=== PATIENT | male | born 1970 | race Caucasian/White ===

== ENCOUNTER 2017-06-30 12:36 | Emergency (ER) | payer OTHER, SELFPAY ==
[2017-06-30 12:37] VITALS: BP 158/109; PULSE 118; RESP 20; TEMP 36.6; O2SAT 98; BMI 36.6
--- NOTE | 2017-06-30 12:56 | HMH.EDGENADL ---
ED Disposition Clinical Impression: Dehydration Gastritis Qualifiers: Gastritis type: unspecified gastritis Chronicity: acute Gastritis bleeding: without bleeding Qualified Code(s): K29.00 - Acute gastritis without bleeding Disposition: Home, Self-Care Condition on Discharge: Fair Instructions: DI for Diarrhea and Traveler's Diarrhea -- Adult, DI for Diarrhea and Traveler's Diarrhea -- Child, DI for Nausea -- Child, Nausea and Vomiting-Adult Additional Instructions: Advised to stay on clear liquids for the next 24 to 48 hours. Check sugars more frequently. Followup with PCP to get scheduled for an EGD . Return to the ED as needed. Prescriptions: Ondansetron HCl [Zofran 4mg Tab] 4 mg PO Q6H 7 Days #30 tab Referrals: Vaishnavi Olmedo [Primary Care Provider] - Time of Disposition: 14:52 - Critical Care Critical Care Time: No Attestation: On , the high probability of a clinically significant, sudden or life threatening deterioration of the following system(s) required my full and direct attention, intervention and personal management. The time I documented below is in addition to time spent performing reported procedures but includes the following listed in this critical care notation. Medical Decision Making - Medical Records Medical records reviewed: Yes: I reviewed the patient's medical records. Vital Signs: 06/30/17 12:37 Temperature 97.9 F Temperature Source Oral Pulse Rate [Right Brachial] 118 H Respiratory Rate 20 Blood Pressure [Right Arm] 158/109 Blood Pressure Mean [Right Arm] 125 Blood Pressure Source [Right Arm] Automatic Cuff Blood Pressure Position [Right Arm] Sitting 02 Sat by Pulse Oximetry 98 Oxygen Delivery Method Room Air - Lab Data Lab Results 06/30/17 13:15: WBC 11.0 H, RBC 6.25 H, Hgb 18.8 H*, Hct 54.2 H, MCV 86.7, MCH 29.9, MCHC 34.5, RDW 12.1, Plt Count 259, MPV 8.1, Neut % (Auto) 76.7, Lymph % (Auto) 17.6, [place] % (Auto) 4.6, Eos % (Auto) 0.5, Baso % (Auto) 0.5, Neut # (Auto) 8.5 H, Lymph # (Auto) 1.9, [place] # (Auto) 0.5, Eos # (Auto) 0.1, Baso # (Auto) 0.1 06/30/17 13:15: Sodium 137, Potassium 3.6, Chloride 98, Carbon Dioxide 26, Anion Gap 16.6 H, BUN 19 H, Creatinine 1.31 H, Estimated Creat Clear 119, Estimated GFR 58 L, Est GFR ( Amer) > 60, Glucose 163 H, Calcium 9.8, Total Bilirubin 1.1 H, AST 22, ALT 30, Alkaline Phosphatase 60, Total Protein 8.1, Albumin 4.7, Globulin 3.4 H, Albumin/Globulin Ratio 1.4, Amylase 89 06/30/17 13:15: Lipase 257 06/30/17 13:15: Influenza Type A Ag Negative, Influenza Type B Ag Negative Result diagrams: 06/30/17 13:15 06/30/17 13:15 Orders (Tests/Meds): ED MEDICATIONS Generic Name Dose Route Start Last Admin Trade Name Freq PRN Reason Stop Dose Admin Sodium Chloride 10 ml 06/30/17 12:55 Saline Flush 10ml Syringe IV 07/30/17 12:54 NEEDED PRN Maintain IV Site Discontinued Medications Generic Name Dose Route Start Last Admin Trade Name Freq PRN Reason Stop Dose Admin Diatrizoate Meglum/Diatrizoate Sod 30 ml 06/30/17 13:11 Gastrografin 66%-10% 30ml PO 06/30/17 13:12 ONCE ONE Sodium Chloride 1,000 mls @ 999 mls/hr 06/30/17 13:30 06/30/17 13:22 Sod Chloride 0.9% 1000ml Bag IV 06/30/17 14:30 999 mls/hr .Q1H1M ALBER Administration Iopamidol 75 ml 06/30/17 14:17 06/30/17 14:19 [id number]; 75ml Vial IV 06/30/17 14:18 75 ml ONCE ONE Administration Ondansetron HCl 4 mg 06/30/17 13:17 06/30/17 13:22 Zofran 4mg/2ml Vial IV 06/30/17 13:18 4 mg ONCE ONE Administration Sodium Chloride 10 ml 06/30/17 14:17 06/30/17 14:19 Rad-Saline Flush 10ml Syringe IV 06/30/17 14:18 10 ml ONCE ONE Administration - CT Data CT Scan: Abdomen, Pelvis (Nothing acute per radiologist) Time Received: 14:[address] Reviewed: Yes: I have reviewed the patient's CT results, I have viewed the radiologist's interpretation Preliminary Findings: Normal/NAD - Benjamin Inquiry
--- NOTE | 2017-06-30 13:02 | ED_ITS ---
ED Disposition Clinical Impression: Dehydration Gastritis Qualifiers: Gastritis type: unspecified gastritis Chronicity: acute Gastritis bleeding: without bleeding Qualified Code(s): K29.00 - Acute gastritis without bleeding Disposition: Home, Self-Care Condition on Discharge: Fair Instructions: DI for Diarrhea and Traveler's Diarrhea -- Adult, DI for Diarrhea and Traveler's Diarrhea -- Child, DI for Nausea -- Child, Nausea and Vomiting-Adult Additional Instructions: Advised to stay on clear liquids for the next 24 to 48 hours. Check sugars more frequently. Followup with PCP to get scheduled for an EGD . Return to the ED as needed. Prescriptions: Ondansetron HCl [Zofran 4mg Tab] 4 mg PO Q6H 7 Days #30 tab Referrals: Vaishnavi Olmedo [Primary Care Provider] - Time of Disposition: 14:52 - Critical Care Critical Care Time: No Attestation: On , the high probability of a clinically significant, sudden or life threatening deterioration of the following system(s) required my full and direct attention, intervention and personal management. The time I documented below is in addition to time spent performing reported procedures but includes the following listed in this critical care notation. Medical Decision Making - Medical Records Medical records reviewed: Yes: I reviewed the patient's medical records. Vital Signs: 06/30/17 12:37 Temperature 97.9 F Temperature Source Oral Pulse Rate [Right Brachial] 118 H Respiratory Rate 20 Blood Pressure [Right Arm] 158/109 Blood Pressure Mean [Right Arm] 125 Blood Pressure Source [Right Arm] Automatic Cuff Blood Pressure Position [Right Arm] Sitting 02 Sat by Pulse Oximetry 98 Oxygen Delivery Method Room Air - Lab Data Lab Results 06/30/17 13:15: WBC 11.0 H, RBC 6.25 H, Hgb 18.8 H*, Hct 54.2 H, MCV 86.7, MCH 29.9, MCHC 34.5, RDW 12.1, Plt Count 259, MPV 8.1, Neut % (Auto) 76.7, Lymph % ( Auto) 17.6, [place] % (Auto) 4.6, Eos % (Auto) 0.5, Baso % (Auto) 0.5, Neut # (Auto ) 8.5 H, Lymph # (Auto) 1.9, [place] # (Auto) 0.5, Eos # (Auto) 0.1, Baso # (Auto) 0.1 06/30/17 13:15: Sodium 137, Potassium 3.6, Chloride 98, Carbon Dioxide 26, Anion Gap 16.6 H, BUN 19 H, Creatinine 1.31 H, Estimated Creat Clear 119, Estimated GFR 58 L, Est GFR ( Amer) > 60, Glucose 163 H, Calcium 9.8, Total Bilirubin 1.1 H, AST 22, ALT 30, Alkaline Phosphatase 60, Total Protein 8.1, Albumin 4.7, Globulin 3.4 H, Albumin/Globulin Ratio 1.4, Amylase 89 06/30/17 13:15: Lipase 257 06/30/17 13:15: Influenza Type A Ag Negative, Influenza Type B Ag Negative Result diagrams: 06/30/17 13:15 06/30/17 13:15 Orders (Tests/Meds): ED MEDICATIONS Generic Name Dose Route Start Last Admin Trade Name Freq PRN Reason Stop Dose Admin Sodium Chloride 10 ml 06/30/17 12:55 Saline Flush 10ml Syringe IV 07/30/17 12:54 NEEDED PRN Maintain IV Site Discontinued Medications Generic Name Dose Route Start Last Admin Trade Name Freq PRN Reason Stop Dose Admin Diatrizoate Meglum/Diatrizoate Sod 30 ml 06/30/17 13:11 Gastrografin 66%-10% 30ml PO 06/30/17 13:12 ONCE ONE Sodium Chloride 1,000 mls @ 999 mls/hr 06/30/17 13:30 06/30/17 13:22 Sod Chloride 0.9% 1000ml Bag IV 06/30/17 14:30 999 mls/hr .Q1H1M ALBER Administration Iopamidol 75 ml 06/30/17 14:17 06/30/17 14:19
--- NOTE | 2017-06-30 13:08 | CT_ITS ---
CT abdomen pelvis w con CLINICAL INDICATION: Generalized abdominal pain ITS.REASON: abdominal pain ORDERING PHYSICIAN: Sejal Baron MD PATIENT AGE: 47 years COMPARISON: 10/18/2015 TECHNIQUE: Axial images obtained with sagittal and coronal reformats. PROCEDURE: Oral Contrast: None IV Contrast: 75 mL's Isovue-370. FINDINGS: No acute finding in the lung bases. Diffuse coronary artery calcification and/or stent placement Prior cholecystectomy. No ductal dilatation. The liver, spleen, adrenal glands, pancreas, and right kidney have an unremarkable appearance. There is a nonobstructing 3 mm stone in the lower pole the left kidney. No hydronephrosis or obstructing renal or ureteral calculi. No intestinal obstruction or free air. No evidence of appendicitis or diverticulitis. No pelvic mass or focal inflammatory change. No acute bony anomalies. There is moderate wedging involving L2 which is chronic similar to 10/18/2015 no evidence of abdominal aortic aneurysm. IMPRESSION: 1. No acute finding. 2. Nonobstructing left nephrolithiasis.
[2017-06-30 13:28] LABS: Lipase 257 u/L (73-393)
[2017-06-30 13:33] LABS: Alanine Aminotransferase 30 U/L (12-78); Albumin Level 4.7 gm/dL (3.4-5.0); Albumin/Globulin Ratio 1.4 (1.1-1.8); Alkaline Phosphatase 60 U/L (46-116); Amylase 89 U/L (25-125); Anion Gap 16.6 mEq/L (5-15); Aspartate Amino Transferase 22 U/L (15-37); Bilirubin,Total 1.1 mg/dL (0.2-1.0); Blood Urea Nitrogen 19 mg/dL (7-18); Calcium 9.8 mg/dL (8.5-10.1); Carbon Dioxide 26 mmol/L (21.0-32.0); Chloride 98 mmol/L (98-107); Creatinine Clearance Estimated 119 mL/min (0-300); Creatinine,Serum 1.31 mg/dL (0.70-1.30); Estimated Glomerular Filt Rate 58 ml/min (>60); GFR (African American) > 60 ML/MIN (>60); Globulin 3.4 gm/dl (1.3-3.2); Glucose 163 mg/dL (74-106); Potassium 3.6 mmoL/L (3.5-5.1); Sodium 137 mmol/L (136-145); Total Protein,Serum 8.1 gm/dL (6.4-8.2)
[2017-06-30 13:38] LABS: Basophils # 0.1 K/mm3 (0-0.2); Basophils % 0.5 % (0.1-2.0); Eosinophils # 0.1 K/mm3 (0.0-0.4); Eosinophils % 0.5 % (0.1-12.0); Hematocrit 54.2 % (42.0-52.0); Lymphocytes # 1.9 K/mm3 (0.7-4.5); Lymphocytes % 17.6 K/mm3 (10-50); Mean Corpuscular HGB Conc 34.5 g/dL (31.8-35.4); Mean Corpuscular Hemoglobin 29.9 pg (27.0-31.2); Mean Corpuscular Volume 86.7 fl (80-94); Mean Platelet Volume 8.1 fl (7.4-10.4); Monocytes # 0.5 K/mm3 (0.1-1.0); Monocytes % 4.6 % (1.7-9.3); Neutrophils # 8.5 K/mm3 (1.8-7.8); Neutrophils % 76.7 % (37.0-80.0); Platelet Count 259 K/mm3 (142-424); Red Blood Count 6.25 M/mm3 (4.60-6.20); Red Cell Distribution Width 12.1 % (11.5-17.5)
[2017-06-30 13:40] LABS: Hemoglobin 18.8 g/dL (14.1-18.0)
[2017-06-30 16:37] VITALS: BP 145/98; PULSE 104; RESP 18; TEMP 36.5; O2SAT 96
== END 2017-06-30 16:37 | disposition home or self-care (01) ==
PROVIDERS: Emergency Provider General Practice; PCP Family Medicine
DX: E86.0 Dehydration (principal); K29.00 Acute gastritis without bleeding; E11.9 Type 2 diabetes mellitus without complications; I10 Essential (primary) hypertension; Z79.82 Long term (current) use of aspirin; Z79.4 Long term (current) use of insulin; Z79.899 Other long term (current) drug therapy
CPT/HCPCS: 74177; 80053; 82150; 83690; 85025; 87275; 87276; 96365; 96375; 99284; J2405; Q9967

== ENCOUNTER → 2017-07-16 12:54 | Outpatient (CLI) | payer OTHER, SELFPAY ==
[2017-07-16 13:05] LABS: Basophils # 0.1 K/mm3 (0-0.2); Basophils % 0.9 % (0.1-2.0); Eosinophils # 0.1 K/mm3 (0.0-0.4); Eosinophils % 1.3 % (0.1-12.0); Hematocrit 51.9 % (42.0-52.0); Hemoglobin 17.1 g/dL (14.1-18.0); Lymphocytes # 1.6 K/mm3 (0.7-4.5); Lymphocytes % 26.8 K/mm3 (10-50); Mean Corpuscular HGB Conc 33.1 g/dL (31.8-35.4); Mean Corpuscular Hemoglobin 29.4 pg (27.0-31.2); Mean Platelet Volume 7.8 fl (7.4-10.4); Monocytes # 0.3 K/mm3 (0.1-1.0); Monocytes % 4.9 % (1.7-9.3); Neutrophils # 3.8 K/mm3 (1.8-7.8); Neutrophils % 66.1 % (37.0-80.0); Platelet Count 255 K/mm3 (142-424); Red Blood Count 5.83 M/mm3 (4.60-6.20); Red Cell Distribution Width 12.3 % (11.5-17.5); White Blood Count 5.8 K/mm3 (4.8-10.8)
== END ==
PROVIDERS: PCP Family Medicine; Visit Provider Family Medicine
DX: D75.1 Secondary polycythemia (principal)
CPT/HCPCS: 36415; 85025

== ENCOUNTER → 2018-08-15 10:40 | Outpatient (CLI) | payer OTHER, SELFPAY ==
[2018-08-15 11:26] LABS: Total Protein,Urine Random 27.9 mg/dL (0.0-11.9)
[2018-08-15 11:43] LABS: Creatinine,Urine Random 529 mg/dL (20-320)
[2018-08-15 12:07] LABS: Thyroid Stimulating Hormone 1.56 uIU/ml (0.358-3.740); Uric Acid 7.3 mg/dL (2.6-7.2)
[2018-08-15 15:03] LABS: Hemoglobin A1C 6.5 % (0.0-7.0)
[2018-08-16 10:56] LABS: Vitamin D 25 Hydroxy 22.7 ng/mL (30.0-100.0)
[2018-08-16 17:32] LABS: Parathyroid Hormone Intact 40 pg/mL (15-65)
== END ==
PROVIDERS: Visit Provider Internal Medicine Nephrology
DX: N18.3 Chronic kidney disease, stage 3 (moderate) (principal); E11.9 Type 2 diabetes mellitus without complications; I10 Essential (primary) hypertension
CPT/HCPCS: 36415; 82570; 82652; 83036; 83970; 84155; 84443; 84550

== ENCOUNTER → 2018-08-23 08:59 | Outpatient (CLI) | payer OTHER, SELFPAY ==
--- NOTE | 2018-08-23 | AS_ITS ---
Renal Arterial Duplex Indications: 405.91 Unspecified renovascular hypertension. CKD stage 3 IMPRESSIONS Normal bilateral renal artery evaluation. History: Risk factors: Hypertension. Renal disease. Complete renal arterial duplex. Duplex scan and Doppler flow study including spectral analysis, color and vines scale imaging. Height: Height: 182.9cm. Height: 72in. Weight: Weight: 122.5kg. Weight: 269.4lb. Body mass index: BMI: 36.6kg/m^2. Body surface area: BSA: 2.54m^2. Location: Vascular laboratory. Patient status: Outpatient. Tables: Arterial flow: + +--------+--------+ Location V sys V ed + +--------+--------+ Right renal - proximal 98.5cm/s 32.8cm/s + +--------+--------+ Right renal - mid 88.9cm/s 32.9cm/s + +--------+--------+ Right renal - distal 58.8cm/s 22.8cm/s + +--------+--------+ Left renal - proximal 94.3cm/s 18cm/s + +--------+--------+ Left renal - mid 126cm/s 34.7cm/s + +--------+--------+ Left renal - distal 104cm/s 26cm/s + +--------+--------+ Right renal-origin 106cm/s 33.5cm/s + +--------+--------+ Aorta 79.2cm/s -------- + +--------+--------+ Left renal-origin 98cm/s 19.9cm/s + +--------+--------+ Renal anatomy: + +------+------+ Left Right + +------+------+ Long axis 12.1cm 11.7cm + +------+------+ Short axis 7.1cm 8.2cm + +------+------+ Cortical thickness 2.3cm 1.7cm + +------+------+ Velocity ratios: + +-----+ V sys + +-----+ Right renal/aortic 1.3 + +-----+ Left renal/aortic 1.6 + +-----+ (Report amended ) Electronically signed by: Blu Low [id number]
== END ==
PROVIDERS: PCP Family Medicine; Visit Provider Internal Medicine Nephrology
DX: I12.9 Hypertensive chronic kidney disease with stage 1 through stage 4 chronic kidney disease, or unspecified chronic kidney disease (principal); N18.3 Chronic kidney disease, stage 3 (moderate)
CPT/HCPCS: 93976

== ENCOUNTER 2018-09-07 15:15 | Observation (INO) ==
[2018-09-07 15:50] LABS: Basophils # 0.1 K/mm3 (0-0.2); Basophils % 0.8 % (0.1-2.0); Eosinophils % 0.5 % (0.1-12.0); Hematocrit 43.6 % (42.0-52.0); Hemoglobin 14.9 g/dL (14.1-18.0); Lymphocytes # 2.5 K/mm3 (0.7-4.5); Lymphocytes % 30.1 % (10-50); Mean Corpuscular HGB Conc 34.3 g/dL (31.8-35.4); Mean Corpuscular Hemoglobin 29.7 pg (27.0-31.2); Mean Corpuscular Volume 86.6 fl (80-94); Monocytes # 0.6 K/mm3 (0.1-1.0); Monocytes % 7.1 % (1.7-9.3); Neutrophils # 5.1 K/mm3 (1.8-7.8); Neutrophils % 61.5 % (37.0-80.0); Platelet Count 281 K/mm3 (142-424); Red Blood Count 5.03 M/mm3 (4.60-6.20); Red Cell Distribution Width 12.1 % (11.5-17.5); White Blood Count 8.3 K/mm3 (4.8-10.8)
--- NOTE | 2018-09-07 15:55 | Emergency Department Note ---
ED Disposition Clinical Impression: CAD (coronary artery disease), Nephrolithiasis Disposition: Still a Patient Condition on Discharge: Fair Referrals: Vaishnavi Olmedo [Primary Care Provider] - - Critical Care Critical Care Time: No Attestation: On 09/07/18, the high probability of a clinically significant, sudden or life threatening deterioration of the following system(s) required my full and direct attention, intervention and personal management. The time I documented below is in addition to time spent performing reported procedures but includes the following listed in this critical care notation. Medical Decision Making - Benjamin Inquiry Pt receiving controlled substance: No Benjamin was queried for this patient: No Vital Signs: 09/07/18 15:28 09/07/18 15:58 Temperature 97.6 F Temperature Source Oral Pulse Rate [Left Radial] 68 73 Respiratory Rate 16 Blood Pressure [Right Arm] 98/63 L 92/66 L Blood Pressure Mean [Right Arm] 74 74 Blood Pressure Source [Right Arm] Automatic Cuff Blood Pressure Position [Right Arm] Sitting Sitting 02 Sat by Pulse Oximetry 98 98 Oxygen Delivery Method Room Air Room Air - Lab Data Lab Results 09/07/18 15:33: WBC 8.3, RBC 5.03, Hgb 14.9, Hct 43.6, MCV 86.6, MCH 29.7, MCHC 34.3, RDW 12.1, Plt Count 281, MPV 8.0, Neut % (Auto) 61.5, Lymph % (Auto) 30.1, [place] % (Auto) 7.1, Eos % (Auto) 0.5, Baso % (Auto) 0.8, Neut # (Auto) 5.1, Lymph # (Auto) 2.5, [place] # (Auto) 0.6, Eos # (Auto) 0.0, Baso # (Auto) 0.1 09/07/18 15:43: Stool Occult Blood Negative Result diagrams: 09/07/18 15:33 Orders (Tests/Meds): ED MEDICATIONS Generic Name Dose Route Start Last Admin Trade Name Freq PRN Reason Stop Dose Admin Sodium Chloride 1,000 mls @ 999 mls/hr 09/07/18 16:00 Sod Chlor 0.9% 1000ml Bag IV 09/07/18 17:00 .Q1H1M ALBER ORDERS Category Date Time Status CT abdomen pelvis wo con Stat Cat Scan 09/07/18 16:00 Ordered Chest XR 2 view (NOT portable) [XR chest 2V] Stat Exams 09/07/18 15:34 Taken B-Type Natriuretic Peptide Stat Lab 09/07/18 15:33 Received Basic Metabolic Panel Stat Lab 09/07/18 15:33 Received Lactic Acid Stat Lab 09/07/18 15:44 Ordered Liver Panel Stat Lab 09/07/18 15:44 Ordered Trop I [Troponin I] Stat Lab 09/07/18 15:33 Received UA [Urinalysis and Microscopic] Stat Lab 09/07/18 15:44 Ordered Blood Culture Stat Micro 09/07/18 15:44 Ordered - ECG Data Tracing #1 Normal sinus rhythm 69/min, first-degree AV block, left axis deviation, progression Q wave in inferior leads no acute findings ECG initial impression date: 09/07/18 ECG initial impression time: 15:38 General Adult HPI - General Chief complaint: Shortness of Breath/Dyspnea Stated complaint: SOB,Pain Back Time Seen by Provider: 09/07/18 15:30 Mode of Arrival: Ambulatory Limitations: No Limitations Description of Symptoms (Recalled from ER Triage Doc. by RN): to ed per pvt car with c/o sob, fatique, back pain, nausea x 3 days. pt denies fever, vomiting cpta none - History of Present Illness HPI narrative: 48 years old white male with multiple medical problems including coronary artery disease with multiple interventions on aspirin and Brilinta, nephrolithiasis and multiple kidney stones. For the past 3 days he has multitude of symptoms, including worsening of his lower back pain decreased, decreased urination, generalized weakness and dizziness that is worse upon standing in addition to his baseline shortness of breath. He denies having fever chills chest pain abdominal pain nausea or vomiting. He denies having hematemesis, coffee-ground emesis melanotic stool or bleeding per rectum. He denies having hematuria dysuria or frequency. The patient has multiple tattoos over his body including the glans penis. Onset (ago): day(s) (3 days ago.) Location: back Severity: moderate Quality: aching Consistency: constant Relieving factors: none Exacerbating factors: none Associated symptoms: malaise, shortness of breath, weakness - Related Data Home Medications Medication Instructions Recorded Confirmed Aspirin [Aspirin 81mg chewable 81 mg PO DAILY 06/30/17 09/07/18 tab] Carvedilol [Carvedilol 12.5mg Tab] 12.5 mg PO BID 06/30/17 09/07/18 Insulin Glargine,Hum.rec.anlog 20 unit SQ DAILY 06/30/17 09/07/18 [Justinosvetlanapaulino Arringtoncynthia U-100] atorvastatin 20 mg tablet 20 mg PO DAILY tab 08/14/17 09/07/18 fenofibrate 160 mg tablet 160 mg PO DAILY tab 08/14/17 09/07/18 omeprazole 40 mg capsule,delayed 40 mg PO DAILY cap 08/14/17 09/07/18 release ticagrelor 90 mg tablet 90 mg PO BID 08/14/17 09/07/18 Felodipine [Plendil 5mg tablet] 5 mg PO DAILY 04/29/18 09/07/18 Isosorbide Mononitrate [Imdur 30mg 30 mg PO QAM 04/29/18 09/07/18 ER tablet] Ranolazine [Ranexa] 500 mg PO BID 09/07/18 09/07/18 Previous Rx's Medication Instructions Recorded ondansetron HCl 4 mg tablet 4 mg PO QHS PRN #30 tab 08/16/17 Allergies Allergy/AdvReac Type Severity Reaction Status Date / Time duloxetine [From CYMBALTA] Allergy Intermediate I-HIVES Verified 06/30/17 12:52 gemfibrozil [From LOPID] Allergy Mild Verified 06/30/17 12:52 Penicillins [PENICILLINS] Allergy Mild Verified 06/30/17 12:52 phenytoin [From DILANTIN] Allergy Mild Verified 06/30/17 12:52 [facility] History - Hepatitis A Screen Drug use history?: No High risk sexual behaviors?: No History of sexually transmitted infection?: No Currently employed?: No Childcare worker?: No Do you have indoor plumbing?: Yes Do you have electricity?: Yes Attestation statement:: This patient has been screened for Hepatitis A risk factors. I have reviewed the patient's past medical history: Yes Medical History: Reports:: Diabetes Mellitus Type 2, Hypertension Denies:: MRSA Other Surgeries: Yes: Colonoscopy (08/01/17), EGD (08/01/17), Other Amputation: No Fractures: No - Social History Smoking Status: Current every day smoker Tobacco Type: cigarettes # Packs/Day (cigarettes): 0 Alcohol Intake: never Occupational Status: unemployed - Psychiatric History Expresses thoughts of harming self/others: None Suicide Plan Description: No Plan ROS Obtained: Yes All systems reviewed & no additional complaints Physical Exam - General General appearance: alert, in no apparent distress - Head Head exam: atraumatic, normocephalic, normal inspection - Eye Eye exam: Present: normal appearance, PERRL, EOMI. Absent: scleral icterus, nystagmus - ENT ENT exam: Present: normal exam, normal oropharynx, mucous membranes moist, TM's normal bilaterally, normal external ear exam - Neck Neck exam: Present: normal inspection, full ROM, trachea midline. Absent: meningismus, lymphadenopathy - Chest Chest inspection: Present: normal inspection, symmetric chest wall rise. Absent: tenderness - Respiratory Respiratory exam: Present: normal lung sounds bilaterally. Absent: respiratory distress - Cardiovascular Cardiovascular exam: Present: regular rate, normal rhythm, normal heart sounds. Absent: JVD - Abdominal Exam Abdominal exam: Present: soft, tenderness, normal bowel sounds, other (Equal bilateral femoral pulse, there is tenderness over the left flank. ). Absent: distention, guarding, rebound, rigidity, Sun's sign, tenderness at McBurney's Point - exam: Present: normal testicular lie, circumcised, other (Patient has tattoos on the glans penis. ). Absent: testicular tenderness, urethral discharge, scrotal swelling - Extremities Exam Extremities exam: Present: full ROM, normal capillary refill, other (multiple tattoos including the ankle. ). Absent: calf tenderness - Back Exam Back exam: Present: CVA tenderness (L). Absent: full ROM, tenderness - Neurological Exam Neurological exam: Present: alert, oriented X3, CN II-XII intact, motor sensory deficit, reflexes normal - Psychiatric Psychiatric exam: Present: normal affect, normal mood - Lymphatic Lymphatic Findings: no adenopathy
[2018-09-07 16:04] LABS: Anion Gap 13.3 mEq/L (5-15); Bilirubin,Direct 0.2 mg/dL (0.0-0.2); Bilirubin,Indirect 0.4 mg/dL (0.0-0.9); Bilirubin,Total 0.6 mg/dL (0.2-1.0); Blood Urea Nitrogen 26 mg/dL (7-18); Calcium 9.1 mg/dL (8.5-10.1); Carbon Dioxide 27 mmol/L (21.0-32.0); Chloride 99 mmol/L (98-107); Glucose 132 mg/dL (74-106); Potassium 4.3 mmoL/L (3.5-5.1); Sodium 135 mmol/L (136-145)
[2018-09-07 16:05] LABS: Total Protein,Serum 7.3 gm/dL (6.4-8.2)
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
[2018-09-08 04:55] LABS: Basophils # 0.1 K/mm3 (0-0.2); Basophils % 0.8 % (0.1-2.0); Eosinophils % 0.5 % (0.1-12.0); Hematocrit 38.7 % (42.0-52.0); Lymphocytes # 3.3 K/mm3 (0.7-4.5); Lymphocytes % 37.9 % (10-50); Mean Corpuscular HGB Conc 34.2 g/dL (31.8-35.4); Mean Corpuscular Hemoglobin 29.6 pg (27.0-31.2); Mean Corpuscular Volume 86.6 fl (80-94); Mean Platelet Volume 7.8 fl (7.4-10.4); Monocytes # 0.5 K/mm3 (0.1-1.0); Monocytes % 6.1 % (1.7-9.3); Neutrophils # 4.8 K/mm3 (1.8-7.8); Neutrophils % 54.7 % (37.0-80.0); Platelet Count 240 K/mm3 (142-424); Red Blood Count 4.47 M/mm3 (4.60-6.20); Red Cell Distribution Width 12.4 % (11.5-17.5); White Blood Count 8.8 K/mm3 (4.8-10.8)
[2018-09-08 04:56] LABS: Hemoglobin 13.2 g/dL (14.1-18.0)
[2018-09-08 05:05] LABS: Anion Gap 13.8 mEq/L (5-15); Blood Urea Nitrogen 21 mg/dL (7-18); Calcium 8.7 mg/dL (8.5-10.1); Carbon Dioxide 25 mmol/L (21.0-32.0); Chloride 103 mmol/L (98-107); Glucose 98 mg/dL (74-106); Potassium 3.8 mmoL/L (3.5-5.1); Sodium 138 mmol/L (136-145)
[2018-09-08 08:40] VITALS: BP 129/67
--- NOTE | 2018-09-08 09:08 | Pharmacy Consult Notes ---
[facility] Pharmacy VTE Monitoring - Patient Demographics Admission date: 09/07/18 Report Date: 09/08/18 Time: 09:08 Allergies/Adverse Reactions: Patient Allergies duloxetine [From CYMBALTA] Allergy (Intermediate, Verified 06/30/17 12:52) I-HIVES gemfibrozil [From LOPID] Allergy (Mild, Verified 06/30/17 12:52) Penicillins [PENICILLINS] Allergy (Mild, Verified 06/30/17 12:52) phenytoin [From DILANTIN] Allergy (Mild, Verified 06/30/17 12:52) Height: 1.83 m Weight: 122.952 kg Patient Problems: Current Active Problems Nephrolithiasis (Acute) Hypotension (Acute) Hypovolemia (Acute) History of ASCVD (Acute) Type 2 diabetes mellitus (Acute) Chronic renal insufficiency (Acute) CAD (coronary artery disease) (Chronic) - VTE Risk Labs: VTE Related Lab Results Hgb 13.2 g/dL (14.1-18.0) L D 09/08/18 04:20 Hct 38.7 % (42.0-52.0) L 09/08/18 04:20 Plt Count 240 K/mm3 (142-424) 09/08/18 04:20 BUN 21 mg/dL (7-18) H 09/08/18 04:20 Creatinine 2.15 mg/dL (0.70-1.30) H 09/08/18 04:20 Estimated Creat Clear 72 mL/min (50-200) 09/08/18 04:20 Was VTE Risk Assessment Performed: Yes VTE Score: 5 VTE Risk Level: Low Risk - Prophylaxis VTE Prophylaxis Ordered?: Yes Types of VTE Prophylaxis: TEDS Knee High Location of Applied Device: Bilateral Lower Extremeties - VTE Diagnosis Confirmed Treatment or plan recommended: Continue Current Treatment
--- NOTE | 2018-09-08 09:38 | Progress Note ---
Internal Medicine - PN: Subj Interval history: He rested well through the night and has no new complaints this morning. His dizziness has resolved. He has been tolerating activity around the room with no complaints of lightheadedness, chest pain, palpitations, or weakness. We have now been able to reconcile his home medication list and he was started on Lasix twice a day along with Spironolactone in May per Dr. Mendoza. This certainly would explain his presentation yesterday. Exam Vital signs and Labs for Last 24 Hours: Temp Pulse Resp BP Pulse Ox 97.9 F 72 16 129/67 97 09/08/18 08:00 09/08/18 08:00 09/08/18 08:00 09/08/18 08:00 09/08/18 08:12 Laboratory Results - last 24 hr 09/07/18 15:33: WBC 8.3, RBC 5.03, Hgb 14.9, Hct 43.6, MCV 86.6, MCH 29.7, MCHC 34.3, RDW 12.1, Plt Count 281, MPV 8.0, Neut % (Auto) 61.5, Lymph % (Auto) 30.1, [place] % (Auto) 7.1, Eos % (Auto) 0.5, Baso % (Auto) 0.8, Neut # (Auto) 5.1, Lymph # (Auto) 2.5, [place] # (Auto) 0.6, Eos # (Auto) 0.0, Baso # (Auto) 0.1 09/07/18 15:33: Sodium 135 L, Potassium 4.3, Chloride 99, Carbon Dioxide 27, Anion Gap 13.3, BUN 26 H, Creatinine 2.31 H, Estimated Creat Clear 66, Estimated GFR 30 L, Est GFR ( Amer) 37 L, Glucose 132 H, Calcium 9.1, Troponin I < 0.02 09/07/18 15:33: B-Natriuretic Peptide 9 09/07/18 15:33: Total Bilirubin 0.6, Direct Bilirubin 0.2, Indirect Bilirubin 0.4, AST 21, ALT 29, Alkaline Phosphatase 42 L, Total Protein 7.3, Albumin 4.0 09/07/18 15:43: Stool Occult Blood Negative 09/07/18 15:58: Lactate 0.7 09/07/18 20:05: Troponin I < 0.02 09/07/18 20:18: POC Glucose 101 09/08/18 04:20: WBC 8.8, RBC 4.47 L, Hgb 13.2 L D, Hct 38.7 L, MCV 86.6, MCH 29.6, MCHC 34.2, RDW 12.4, Plt Count 240, MPV 7.8, Neut % (Auto) 54.7, Lymph % (Auto) 37.9, [place] % (Auto) 6.1, Eos % (Auto) 0.5, Baso % (Auto) 0.8, Neut # (Auto) 4.8, Lymph # (Auto) 3.3, [place] # (Auto) 0.5, Eos # (Auto) 0.0, Baso # (Auto) 0.1 09/08/18 04:20: Sodium 138, Potassium 3.8, Chloride 103, Carbon Dioxide 25, Anion Gap 13.8, BUN 21 H, Creatinine 2.15 H, Estimated Creat Clear 72, Estimated GFR 33 L, Est GFR ( Amer) 40 L, Glucose 98 D, Calcium 8.7, Troponin I < 0.02 09/08/18 06:27: POC Glucose 86 I & O for Last 24 hours: Intake & Output 09/05/18 09/06/18 09/07/18 09/08/18 11:59 11:59 11:59 11:59 Intake Total 2027 / 2027 Output Total 750 / 750 Balance 1278 / 1278 Weight 271 lb 1 oz Narrative: He is alert and oriented and in no distress. Lungs are clear to auscultation. Heart is regular with no murmurs or ectopy. Extremities no edema. Assessment and Plan (1) Hypotension Status: Acute Category: Medical Code(s): I95.9 - Hypotension, unspecified (2) Hypovolemia Status: Acute Category: Medical Code(s): E86.1 - Hypovolemia (3) History of ASCVD Status: Acute Category: Medical Code(s): Z86.79 - Personal history of other diseases of the circulatory system (4) Type 2 diabetes mellitus Status: Acute Category: Medical Code(s): E11.9 - Type 2 diabetes mellitus w ithout complications (5) Chronic renal insufficiency Status: Acute Category: Medical Code(s): N18.9 - Chronic kidney disease, unspecified - Assessment and plan all Dx Assessment and Plan for all problems:: His blood pressure has normalized with hydration. He is stable for discharge today. He is directed to decrease his Lasix to once a day and discontinue his felodipine. We will arrange a follow-up appoint with Dr. Mendoza this week.
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
== END 2018-09-08 10:48 | disposition home or self-care (01) ==
LOC: 2ND 15:15 → ER 15:15 → 2ND 18:02
PROVIDERS: ADMIT Family Medicine; ATTEND Family Medicine
CPT/HCPCS: 36415; 71020; 71046; 74176; 80048; 80076; 82272; 82962; 83605; 83880; 84484; 85025; 87040; 93005; 96365; 99285; G0328; G0378

== ENCOUNTER → 2018-11-21 06:56 | Outpatient (CLI) | payer OTHER, SELFPAY ==
--- NOTE | 2018-11-21 06:59 | NM_ITS ---
CARDIOLITE SPECT MYOCARDIAL PERFUSION LEXISCAN, REST AND STRESS: [facility] REVIEW QGS EF AND WALL MOTION EVALUATION: QPS - PERFUSION EVALUATION HISTORY: cp..soa..fatigue DOSE: 9.91 mCi technetium 99m mibi intravenously at rest followed by 30.0 mCi technetium 99m mibi following the intravenous ministration of 0.4 mg of Lexiscan. Resting blood pressure is 121/73. Stress blood pressure 128/74. FINDINGS: Ejection fraction is calculated to be 43%. Stress images reveal decreased activity in the inferior apical wall as well as lateral wall. Stress images reveal mildly decreased activity in the apex and inferior wall with IMPRESSION: High risk abnormal stress test with previous nontransmural myocardial infarction involving the inferior apical wall with partial reversible ischemia. Reversible ischemia in the lateral wall. Regional wall motion abnormality. Used ejection fraction
--- NOTE | 2018-11-21 06:59 | CA_ITS ---
PROCEDURE: 2-D M-mode and color Doppler study INDICATIONS FOR THE TEST: Chest pain+ COPD Heart Murmur Tobacco Smoking+ Palpitations Fatigue Syncope Edema Hypertension+Diabetes Mellitus+ Rheumatic Fever SOB+MARTINEZ Obesity+Hyperlipidemia+ Family History HD Additional History CAD, ANGINA, CM, SC, STENTS PATIENT INFORMATION HEIGHT: 72 WEIGHT:266 GENDER: Male B/P:111/73 2-D/M-MODE INTERPRETATION: 2-D MEASUREMENTS OBSERVED VALUES IN CMS Right Ventricular Dimension (RVDd) 2.3 Interventricular Septum (Thickness)(IVsd) 1.1 Left Ventricular Internal Dimensions(LVIDd) 5.0 Left Ventricular Posterior Wall (Thickness)(LVPWd) 0.7 Aortic Root 3.5 Aortic Cusp Separation 2.1 Left Atrial Dimensions (LAD) 4.5 2D 1. Technically difficult study because of the patient's factor and poor acoustic windows 2. Left atrium is mildly enlarged, left ventricle is normal size, mild concentric left ventricular hypertrophy, visually estimated ejection fraction 45%, there appears to be moderate hypokinesis involving the distal septum and apical wall. 3. The right atrium and right ventricle are normal size and contractility. 4. The aortic valve is minimally thickened and fibrosed. 5. The pulmonic valve is poorly present. 6. No significant pericardial effusion noted. DOPPLER INTERROGATION: Doppler interrogation of the aortic, mitral and tricuspid valvular presence of mild mitral and tricuspid regurgitation, tricuspid regurgitation jet velocity is inadequate for calculation of the right ventricular systolic pressure, diastolic parameters are inconclusive. CONCLUSION: 1. Technically difficult study because of the patient's factor and poor acoustic windows 2. Mildly enlarged left atrium, normal left ventricular size, mild concentric left ventricular hypertrophy, visually estimated ejection fraction of 45% with multiple segmental wall motion abnormality described above. Diastolic parameters are inconclusive. 3. Mild mitral and tricuspid regurgitation 4. No significant pericardial effusion noted.
--- NOTE | 2018-11-21 10:52 | HMH.ITSHM ---
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 [] spironolactone asa atorvasatin buspirone carvedilol omeprazole
== END ==
PROVIDERS: PCP Family Medicine; Visit Provider Nurse Practitioner Family
DX: I20.9 Angina pectoris, unspecified (principal); I25.10 Atherosclerotic heart disease of native coronary artery without angina pectoris; I43 Cardiomyopathy in diseases classified elsewhere; I50.20 Unspecified systolic (congestive) heart failure; R06.02 Shortness of breath
CPT/HCPCS: 78452; 93017; 93306; A9502; J2785

== ENCOUNTER → 2018-12-20 12:34 | Outpatient (CLI) | payer OTHER, SELFPAY ==
--- NOTE | 2018-12-20 12:39 | XR_ITS ---
XR wrist LT min 3V CLINICAL INDICATION: ITS.REASON: lt wrist fx ORDERING PHYSICIAN: Carmen Lowe MD PATIENT AGE: 48 years Comparison: None FINDINGS: Bone density is stable. The small linear fracture involving the triquetrum or pisiform carpal bone as discussed on the prior report is not visualized. There is no acute fracture on this study. Soft tissues are unremarkable. Alignment is stable and normal. IMPRESSION: No evidence of acute fracture. The previously described fracture line is not identified on this study.
== END ==
PROVIDERS: PCP Family Medicine; Visit Provider Orthopaedic Surgery
DX: S62.113A Displaced fracture of triquetrum [cuneiform] bone, unspecified wrist, initial encounter for closed fracture (principal)
CPT/HCPCS: 73110

== ENCOUNTER → 2019-07-30 13:49 | Outpatient (CLI) | payer OTHER, SELFPAY ==
[2019-07-30 14:32] LABS: Basophils % 0.6 % (0.1-2.0); Eosinophils # 0.1 K/mm3 (0.0-0.4); Eosinophils % 1.7 % (0.1-12.0); Hematocrit 45.5 % (42.0-52.0); Hemoglobin 15.5 g/dL (14.1-18.0); Lymphocytes # 2.3 K/mm3 (0.7-4.5); Lymphocytes % 32.8 % (10-50); Mean Corpuscular Volume 88.4 fl (80-94); Mean Platelet Volume 7.9 fl (7.4-10.4); Monocytes # 0.4 K/mm3 (0.1-1.0); Monocytes % 5.6 % (1.7-9.3); Neutrophils # 4.2 K/mm3 (1.8-7.8); Neutrophils % 59.3 % (37.0-80.0); Platelet Count 238 K/mm3 (142-424); Red Blood Count 5.15 M/mm3 (4.60-6.20); White Blood Count 7.2 K/mm3 (4.8-10.8)
[2019-07-30 15:37] LABS: Hemoglobin A1C 7.2 % (0.0-7.0)
[2019-07-30 15:53] LABS: Alanine Aminotransferase 32 U/L (12-78); Albumin Level 3.7 gm/dL (3.4-5.0); Albumin/Globulin Ratio 1.4 (1.1-1.8); Alkaline Phosphatase 42 U/L (46-116); Anion Gap 9.6 mEq/L (5-15); Aspartate Amino Transferase 20 U/L (15-37); Bilirubin,Total 0.3 mg/dL (0.2-1.0); Blood Urea Nitrogen 12 mg/dL (7-18); Calcium 8.7 mg/dL (8.5-10.1); Carbon Dioxide 30 mmol/L (21.0-32.0); Chloride 105 mmol/L (98-107); Cholesterol 150 mg/dL (140-200); Creatinine,Serum 1.34 mg/dL (0.70-1.30); Estimated Glomerular Filt Rate 56 ml/min (>60); Free Thyroxine Index 2.2 ug/dL (5.93-13.13); GFR (African American) 68 ML/MIN (>60); Globulin 2.7 gm/dl (1.3-3.2); Glucose 155 mg/dL (74-106); HDL Cholesterol 30 mg/dL (27-67); LDL Cholesterol 89 mg/dL (0-130); Potassium 4.6 mmoL/L (3.5-5.1); Sodium 140 mmol/L (136-145); T4 (Thyroxine) 7.2 ug/dl (4.7-13.3); Thyroid Stimulating Hormone 1.05 uIU/ml (0.358-3.740); Total Protein,Serum 6.4 gm/dL (6.4-8.2); Triglycerides 156 mg/dL (30-200); Triiodothryronine (T3) Uptake 30 % (31-39); VLDL Cholesterol 31 mg/dL (0-40)
== END ==
PROVIDERS: Visit Provider Nurse Practitioner Psychiatric/Mental Health
DX: F33.1 Major depressive disorder, recurrent, moderate (principal)
CPT/HCPCS: 36415; 80053; 80061; 83036; 84436; 84443; 84479; 85025

== ENCOUNTER 2020-03-10 12:36 | Emergency (ER) | payer OTHER, SELFPAY ==
[2020-03-10 12:50] VITALS: BP 123/81; PULSE 97; RESP 20; TEMP 36.4; O2SAT 98; BMI 43.4
--- NOTE | 2020-03-10 13:15 | HMH.EDUTC ---
[facility] Disposition Clinical Impression: Viral syndrome Diarrhea Qualifiers: Diarrhea type: unspecified type Qualified Code(s): R19.7 - Diarrhea, unspecified Pharyngitis Qualifiers: Pharyngitis/tonsillitis etiology: unspecified etiology Qualified Code(s): J02.9 - Acute pharyngitis, unspecified Acid reflux Qualifiers: Esophagitis presence: esophagitis presence not specified Qualified Code(s): K21.9 - Gastro-esophageal reflux disease without esophagitis Disposition: Home, Self-Care Condition on Discharge: Good Instructions: Diarrhea, DI for Viral Syndrome Additional Instructions: Drink plenty of fluids. Take tylenol or ibuprofen for pain or fever. Take the medications as directed. Follow up with your regular doctor. GO TO THE ER FOR ANY WORSENING SYMPTOMS FOLLOW THE DIRECTIONS ON THE COVID-19 HAND OUT THAT WE GAVE YOU REGARDING SELF-ISOLATION UNTIL YOU KNOW YOUR COVID-19 RESULTS Return a stool sample if you diarrhea continues thru tomorrow. Prescriptions: Famotidine [Pepcid 20mg Tablet] 20 mg PO DAILY 30 Days #30 tab Transmission Status: Received by [facility] Azithromycin [Z-Seng 250mg Tab*] 250 mg PO UD DOSE PK #6 tab Transmission Status: Received by [facility] Referrals: Vaishnavi Olmedo [Primary Care Provider] - Time of Disposition: 13:43 Medical Decision Making - Medical Records Medical records reviewed: No: I reviewed the patient's medical records. - Benjamin Inquiry Pt receiving controlled substance: No Vital Signs: 03/10/20 12:50 03/10/20 13:20 Temperature 97.5 F L 97.5 F L Temperature Source Oral Oral Pulse Rate [Left Radial] 97 H 97 H Respiratory Rate 20 20 Blood Pressure [Right Arm] 123/81 123/81 Blood Pressure Mean [Right Arm] 95 95 Blood Pressure Source [Right Arm] Automatic Cuff Automatic Cuff Blood Pressure Position [Right Arm] Sitting Sitting 02 Sat by Pulse Oximetry 98 98 Oxygen Delivery Method Room Air Room Air - Lab Data Lab results reviewed: Yes: I reviewed the patient's lab results. Orders (Tests/Meds): ORDERS Category Date Time Status Covid-19 Nasal PCR Sendout [facility] 03/10/20 13:28 Received [facility] HPI - General Stated complaint: COVID SYM Time Seen by Provider: 03/10/20 13:15 Mode of Arrival: Ambulatory Source of Information: Patient Limitations: No Limitations Description of Symptoms (Recalled from Triage Doc. by RN): c/o cough, n/v/d for 9 days, just feeling weak. - History of Present Illness Provider Complaint: He c/o 9 days of feeling bad. He has had diarrhea, nausea, cough, sore throat and feeling very bad at times. He is not aware of any exposure to COVID, but he would like to be checked since his symptoms have went on so long. - Related Data Home Medications Medication Instructions Recorded Confirmed Insulin Glargine,Hum.rec.anlog 20 unit SQ DAILY 06/30/17 01/15/19 [Maribell Peacock U-100] fenofibrate 160 mg tablet 160 mg PO DAILY tab 08/14/17 01/15/19 omeprazole 40 mg capsule,delayed 40 mg PO DAILY cap 08/14/17 01/15/19 release ticagrelor 90 mg tablet 90 mg PO BID 08/14/17 01/15/19 Ranolazine [Ranexa] 500 mg PO BID 09/07/18 01/15/19 ARIPiprazole [Aripiprazole 10mg 10 mg PO DAILY 09/08/18 01/15/19 Tablet] Aspirin [Aspir 81] 81 mg PO DAILY 09/08/18 01/15/19 Buspirone HCl [Buspirone 15 mg 15 mg PO DAILY 09/08/18 01/15/19 Tablets] Meloxicam [Mobic 15 mg tab] 15 mg PO DAILY 09/08/18 01/15/19 Montelukast Sodium [Montelukast 10 mg PO HS 09/08/18 01/15/19 10mg Tab] Sitagliptin Phosphate [Januvia 100 mg PO DAILY 09/08/18 01/15/19 100mg tablet] Spironolactone [Aldactone 50mg 50 mg PO DAILY 09/08/18 01/15/19 Tab] Tamsulosin HCl [Flomax 0.4mg 0.4 mg PO HS 09/08/18 01/15/19 capsule] Vortioxetine Hydrobromide 20 mg PO DAILY 09/08/18 01/15/19 [Trintellix] carvediloL [Carvedilol 25mg Tab] 25 mg PO DAILY 09/08/18 01/15/19 atorvastatin 20 mg tablet 40 mg
[2020-03-10 13:20] VITALS: BP 123/81; PULSE 97; RESP 20; TEMP 36.4; O2SAT 98; BMI 43.3
[2020-03-10 14:38] VITALS: BP 123/81; PULSE 97; RESP 20; TEMP 36.7; O2SAT 98
[2020-03-10 14:46] LABS: UTC Strep Screen (Rapid) Negative (Negative)
[2020-03-12 10:17] LABS: Covid-19 Nasal PCR Sendout Lex NOT DETECTED
== END 2020-03-10 14:40 | disposition home or self-care (01) ==
LOC: ER 12:41 → UTC 12:51
PROVIDERS: Emergency Provider Nurse Practitioner Family; PCP Family Medicine
DX: B34.9 Viral infection, unspecified (principal); Z20.828 Contact with and (suspected) exposure to other viral communicable diseases; J02.9 Acute pharyngitis, unspecified; K21.9 Gastro-esophageal reflux disease without esophagitis; I25.10 Atherosclerotic heart disease of native coronary artery without angina pectoris; E78.5 Hyperlipidemia, unspecified; I10 Essential (primary) hypertension; I25.2 Old myocardial infarction; Z79.899 Other long term (current) drug therapy; Z88.0 Allergy status to penicillin; Z88.8 Allergy status to other drugs, medicaments and biological substances
CPT/HCPCS: 87880; 99202; U0004

== ENCOUNTER 2020-05-28 13:54 | Emergency (ER) | payer OTHER, SELFPAY ==
[2020-05-28 14:16] VITALS: BP 126/81; PULSE 91; RESP 18; TEMP 36.6; O2SAT 96; BMI 35.9
[2020-05-28 14:23] LABS: UTC Influenza A Antigen Negative (Negative)
[2020-05-28 14:24] LABS: UTC Influenza B Antigen Negative (Negative)
--- NOTE | 2020-05-28 14:27 | HMH.EDUTC ---
[facility] [place] [facility] Disposition Clinical Impression: Viral syndrome, Exposure to COVID-19 virus, Bronchitis Disposition: Home, Self-Care Condition on Discharge: Good Instructions: Preventing the Spread of Coronavirus Discharge Instructions Additional Instructions: Drink plenty of fluids. Take tylenol for pain or fever. Return if you begin to have difficulty breathing. Follow up with your regular doctor. GO TO THE ER FOR ANY WORSENING SYMPTOMS Prescriptions: Ondansetron [Zofran 4mg ODT] 4 mg PO Q8HP PRN #12 tab.rapdis PRN Reason: Nausea Transmission Status: Received by [facility] Benzonatate [Tessalon Perle 100mg Cap] 100 mg PO TIDP PRN #30 cap PRN Reason: Cough Transmission Status: Received by [facility] Azithromycin [Z-Seng 250mg Tab*] 250 mg PO UD DOSE PK #6 tab Transmission Status: Received by [facility] Referrals: Vaishnavi Olmedo [Primary Care Provider] - Time of Disposition: 14:30 Medical Decision Making - Medical Records Medical records reviewed: No: I reviewed the patient's medical records. - Benjamin Inquiry Pt receiving controlled substance: No Vital Signs: 05/28/20 14:16 05/28/20 14:56 Temperature 97.8 F 97.8 F Temperature Source Oral Oral Pulse Rate 91 H Pulse Rate [Radial] 91 H Respiratory Rate 18 18 Blood Pressure 126/81 Blood Pressure [Right Arm] 126/81 Blood Pressure Mean [Right Arm] 96 Blood Pressure Source Automatic Cuff Blood Pressure Source [Right Arm] Automatic Cuff Blood Pressure Position Sitting Blood Pressure Position [Right Arm] Sitting 02 Sat by Pulse Oximetry 96 Oxygen Delivery Method Room Air Room Air - Lab Data Lab results reviewed: Yes: I reviewed the patient's lab results. Lab Results 05/28/20 14:03: Influenza Type A Ag Negative, Influenza Type B Ag Negative [facility] [place] HPI - General Stated complaint: covid test Time Seen by Provider: 05/28/20 14:27 Mode of Arrival: Ambulatory Source of Information: Patient Limitations: No Limitations Description of Symptoms (Recalled from Triage Doc. by RN): cough, chest congestion, body aches, SOB x 3 days HEENT Symptoms (Recalled from RN notes): Yes Resp Symptoms (Recalled from RN notes): No Skin Symptoms (Recalled from RN notes): No MS Symptoms (Recalled from RN notes): No Functional Status (Recalled from RN notes): wnl - History of Present Illness Provider Complaint: He states that he has had cough, chest congestion, chest tightness, and body aches for the past 3 days. - Related Data Home Medications Medication Instructions Recorded Confirmed Insulin Glargine,Hum.rec.anlog 20 unit SQ DAILY 06/30/17 01/15/19 [Maribell Peacock U-100] fenofibrate 160 mg tablet 160 mg PO DAILY tab 08/14/17 01/15/19 omeprazole 40 mg capsule,delayed 40 mg PO DAILY cap 08/14/17 01/15/19 release ticagrelor 90 mg tablet 90 mg PO BID 08/14/17 01/15/19 Ranolazine [Ranexa] 500 mg PO BID 09/07/18 01/15/19 ARIPiprazole [Aripiprazole 10mg 10 mg PO DAILY 09/08/18 01/15/19 Tablet] Aspirin [Aspir 81] 81 mg PO DAILY 09/08/18 01/15/19 Buspirone HCl [Buspirone 15 mg 15 mg PO DAILY 09/08/18 01/15/19 Tablets] Meloxicam [Mobic 15 mg tab] 15 mg PO DAILY 09/08/18 01/15/19 Montelukast Sodium [Montelukast 10 mg PO HS 09/08/18 01/15/19 10mg Tab] Sitagliptin Phosphate [Januvia 100 mg PO DAILY 09/08/18 01/15/19 100mg tablet] Spironolactone [Aldactone 50mg 50 mg PO DAILY 09/08/18 01/15/19 Tab] Tamsulosin HCl [Flomax 0.4mg 0.4 mg PO HS 09/08/18 01/15/19 capsule] Vortioxetine Hydrobromide 20 mg PO DAILY 09/08/18 01/15/19 [Trintellix] carvediloL [Carvedilol 25mg Tab] 25 mg PO DAILY 09/08/18 01/15/19 atorvastatin 20 mg tablet 40 mg PO DAILY tab 11/08/18 01/15/19 ranitidine HCl 150 mg tablet 150 mg PO DAILY 11/08/18 01/15/19 trazodone 150 mg tablet 150 mg PO DAILY 11/08/18 01/15/19 Previous Rx's Medication Instructions Recorded ondansetron HCl
[2020-05-28 14:56] VITALS: BP 126/81; PULSE 91; RESP 18; TEMP 36.6; O2SAT 96
--- NOTE | 2020-05-28 19:58 | PC.NURSE ---
Patient notified of positive COVID results. Educated on proper quarantine.
== END 2020-05-28 14:56 | disposition home or self-care (01) ==
PROVIDERS: Emergency Provider Nurse Practitioner Family; PCP Family Medicine
DX: U07.1 COVID-19 (principal); I25.2 Old myocardial infarction; I25.10 Atherosclerotic heart disease of native coronary artery without angina pectoris; I10 Essential (primary) hypertension; E78.5 Hyperlipidemia, unspecified; E11.9 Type 2 diabetes mellitus without complications; Z79.899 Other long term (current) drug therapy
CPT/HCPCS: 87804; 99201; U0003

== ENCOUNTER → 2020-08-28 10:14 | Outpatient (CLI) | payer OTHER, SELFPAY ==
[2020-08-28 10:19] LABS: Microscopic, Urine URINE MICROSCOPIC (MICROSCOPIC)
[2020-08-28 10:44] LABS: Appearance,Urine CLEAR (Clear); Basophils # 0.1 K/mm3 (0-0.2); Basophils % 1.2 % (0.1-2.0); Bilirubin,Urine Negative (Negative); Blood, Urine Negative (Negative); Color,Urine YELLOW (Yellow); Eosinophils % 0.3 % (0.1-12.0); Glucose,Urine (UA) 3+ (Negative); Hematocrit 51.9 % (42.0-52.0); Ketones,Urine Negative (Negative); Leukocyte Esterase,Urine Negative (Negative); Lymphocytes # 2.3 K/mm3 (0.7-4.5); Lymphocytes % 30.8 % (10-50); Mean Corpuscular HGB Conc 32.8 g/dL (31.8-35.4); Mean Corpuscular Hemoglobin 28.6 pg (27.0-31.2); Mean Corpuscular Volume 87.2 fl (80-94); Mean Platelet Volume 7.9 fl (7.4-10.4); Monocytes # 0.4 K/mm3 (0.1-1.0); Monocytes % 5.5 % (1.7-9.3); Neutrophils # 4.7 K/mm3 (1.8-7.8); Neutrophils % 62.2 % (37.0-80.0); Nitrate,Urine Negative (Negative); Platelet Count 228 K/mm3 (142-424); Protein,Urine Negative (Negative); Red Blood Count 5.95 M/mm3 (4.60-6.20); Red Cell Distribution Width 13.4 % (11.5-17.5); Specific Gravity, Urine >= 1.030 (1.005-1.030); Urobilinogen,Urine 0.2 EU/dl (0.2); White Blood Count 7.6 K/mm3 (4.8-10.8)
[2020-08-28 10:45] LABS: Creatinine,Urine Random 163 mg/dL (Not Estab.)
[2020-08-28 10:59] LABS: Squamous Epithelial Cell,Urine Occasional #/hpf (0-5)
[2020-08-28 11:05] LABS: Chloride 102 mmol/L (98-107); Potassium 4.5 mmoL/L (3.5-5.1); Sodium 135 mmol/L (136-145)
[2020-08-28 11:06] LABS: Albumin Level 4.2 g/dl (3.5-5.0)
[2020-08-28 11:08] LABS: Anion Gap 10.5 mEq/L (5-15); Blood Urea Nitrogen 10 mg/dl (9-20); Carbon Dioxide 27 mmol/L (22.0-30.0); Estimated Glomerular Filt Rate 64 ml/min (>60); GFR (African American) 77 ML/MIN (>60)
[2020-08-28 11:09] LABS: Calcium 9.5 mg/dl (8.4-10.2); Glucose 315 mg/dl (74-100); Phosphorous 2.8 mg/dl (2.5-4.5)
== END ==
PROVIDERS: Visit Provider Internal Medicine Nephrology
DX: N18.30 Chronic kidney disease, stage 3 unspecified (principal)
CPT/HCPCS: 36415; 80069; 81001; 82570; 84155; 85025

== ENCOUNTER → 2021-02-17 16:12 | Outpatient (CLI) | payer OTHER, SELFPAY ==
--- NOTE | 2021-02-17 16:49 | XR_ITS ---
PROCEDURE: XR FOOT LT MIN 3V CLINICAL INDICATION: TOE PAIN/FOOT PAIN/TOE LESION/DIABETES COMPARISON: No exams were available for comparison FINDINGS: No fracture or dislocation. No lytic or blastic change. There is normal mineralization. The joint spaces are well-preserved. No significant degenerative/arthritic changes. No erosive changes evident. Other findings:None. IMPRESSION: No acute findings. Dictated by: Blu Low MD 02/18/2021 15:06 Blu Low MD in OV 02/18/2021 15:06
[2021-02-17 17:07] LABS: Basophils # 0.1 K/mm3 (0-0.2); Basophils % 1.3 % (0.1-2.0); Eosinophils # 0.1 K/mm3 (0.0-0.4); Eosinophils % 0.7 % (0.1-12.0); Hematocrit 55.6 % (42.0-52.0); Lymphocytes # 2.1 K/mm3 (0.7-4.5); Lymphocytes % 25.6 % (10-50); Mean Corpuscular HGB Conc 32.8 g/dL (31.8-35.4); Mean Corpuscular Hemoglobin 29.6 pg (27.0-31.2); Mean Corpuscular Volume 90.4 fl (80-94); Mean Platelet Volume 8.1 fl (7.4-10.4); Monocytes # 0.4 K/mm3 (0.1-1.0); Monocytes % 4.7 % (1.7-9.3); Neutrophils # 5.5 K/mm3 (1.8-7.8); Neutrophils % 67.8 % (37.0-80.0); Platelet Count 229 K/mm3 (142-424); Red Blood Count 6.15 M/mm3 (4.60-6.20)
[2021-02-17 17:58] LABS: 25-OH Vitamin D, Total 32.8 ng/mL (30-100)
[2021-02-17 18:05] LABS: Alanine Aminotransferase 41 U/L (12-78); Albumin Level 3.8 g/dl (3.5-5.0); Albumin/Globulin Ratio 1.4 (1.1-1.8); Alkaline Phosphatase 101 U/L (38-126); Anion Gap 16.3 mEq/L (5-15); Aspartate Amino Transferase 35 U/L (17-59); Bilirubin,Total 0.6 mg/dl (0.2-1.3); Blood Urea Nitrogen 16 mg/dl (9-20); Carbon Dioxide 22 mmol/L (22.0-30.0); Chloride 92 mmol/L (98-107); Chol/HDL Ratio 8.1 (1-3.5); Cholesterol 194 mg/dl (140-200); Estimated Glomerular Filt Rate 89 ml/min (>60); GFR (African American) 107 ML/MIN (>60); Globulin 2.7 g/dL (1.3-3.2); HDL Cholesterol 24 mg/dl (40-60); Potassium 5.3 mmoL/L (3.5-5.1); Sodium 125 mmol/L (136-145); Total Protein,Serum 6.5 g/dl (6.3-8.2)
[2021-02-17 18:16] LABS: Direct LDL Cholesterol 60.14 mg/dL (100-129)
[2021-02-17 18:18] LABS: Glucose 662 mg/dl (74-100); Triglycerides 1054 mg/dl (30-150)
[2021-02-17 18:35] LABS: Thyroid Stimulating Hormone 1.27 uIU/mL (0.465-4.68)
[2021-02-17 18:57] LABS: Hemoglobin A1C 10.5 % (4.0-6.0)
[2021-02-17 19:23] LABS: Hemoglobin 18.2 g/dL (14.1-18.0)
[2021-02-19 10:58] LABS: Triiodothyronine (T3) Free 2.7 pg/mL (2.0-4.4)
== END ==
PROVIDERS: PCP Family Medicine; Visit Provider Family Medicine
DX: E11.9 Type 2 diabetes mellitus without complications (principal); E78.5 Hyperlipidemia, unspecified; R53.83 Other fatigue; M79.672 Pain in left foot; Z79.4 Long term (current) use of insulin
CPT/HCPCS: 36415; 73630; 80053; 80061; 82306; 83036; 84439; 84443; 84481; 85025

== ENCOUNTER 2021-03-10 09:00 | Outpatient (RCR) | payer OTHER, SELFPAY | END 2021-03-10 09:05 | disposition home or self-care (01) | LOC: PT 09:00 | PROVIDERS: PCP Family Medicine; Visit Provider Family Medicine | DX: L97.529 Non-pressure chronic ulcer of other part of left foot with unspecified severity (principal) | CPT/HCPCS: 97162 ==

== ENCOUNTER 2021-12-23 14:54 | Emergency (ER) | payer OTHER, SELFPAY ==
[2021-12-23 14:55] VITALS: BP 138/82; PULSE 95; RESP 16; TEMP 36.8; O2SAT 95; BMI 32.5
--- NOTE | 2021-12-23 14:55 | PC.NURSE ---
PAVITHRA BLACKMAN at
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
--- NOTE | 2021-12-23 15:16 | PC.NURSE ---
confirmed with Li[facility] in pharmacy about giving Reglan IM per ER request. Lico states okay to given reglan IM, dose is 5-10 mg notified ER
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
--- NOTE | 2021-12-23 15:27 | PC.NURSE ---
lights off in pts room for comfort r/t headache per pt request. Will continue to monitor
[2021-12-23 16:14] VITALS: BP 102/59; PULSE 89; RESP 16; TEMP 36.6; O2SAT 98
== END 2021-12-23 16:15 | disposition home or self-care (01) ==
PROVIDERS: Emergency Provider Emergency Medicine
DX: R51.9 Headache, unspecified (principal); R42 Dizziness and giddiness
CPT/HCPCS: 96372; 99283